=== PATIENT | male | born 1965 ===

== ENCOUNTER → 2019-08-10 | Outpatient (CLI) | payer BC ==
--- NOTE | 2019-08-10 10:07 | RAD ---
MR#: [id number] Date of Study: 08/10/2019 Ordering Physician: ROSAURA HUNTER Referring Physician: MENDEZ MEJÍA Tech: APPROVED REPORT Test Type: Exercise Stress Nurse/Tech: Tammy Nixon R.N. Test Indications: exertional angina, htn Cardiac History: htn Medications: See Electronic Medical Record Medical History: See Electronic Medical Record Resting ECG: SB w/ST elevation in lead V3 Resting Heart Rate: 52 bpm Resting Blood Pressure: 135/83mmHg Pretest Chest Pain: No chest pain Nurse/Tech Notes S1S2, lungs CTA Stress Symptoms jaw pain started about 4.5 minutes into stress part, scale 1.5/10. sternal/abd pain started shortly a fter and was 2.5/10. by the time reached HR goal his jaw pain was about the same and sternal/abd pain was up to 3.5. the jaw pain was gone within 2 minutes of recovery and sternal/abd pain was gone by t he end of recovery period. Will call Dr. Hunter's office and notify them of abnormal EKG POST EXERCISE Reason for Termination: Reached target heart rate Target HR: Yes Max HR: 143 bpm 102% of Maximum Predicted HR: 139 bpm Exercise duration: 10:14 min:sec, 4 Stage Exercise capacity: 13.4METs Max Blood Pressure: 205/105mmHg Blood Pressure response to exercise: Normal blood pressure response during stress. Heart Rate response to exercise: wnl Chest Pain: Yes. see above note Arrhythmia: No. ST Change: Yes. increased level of ST elevation in V3, new ST elevation in leads AVL, AVR, V1. ST dep ression in leads II,III,AVF, V5,V6 INTERPRETATION Stress EKG Conclusion: Mildly abnormal EKG with lateral ST depression of 1.5 mm Conclusion 1. 1. Baseline EKG without acute abnormalities. 2. 2. Mildly abnormal stress EKG with lateral wall ischemia suggested. 3. 3. Above average exercise capacity with 13.4 Mets achieved with normotensive BP response. 4. 4. Dumont treadmill score of 0 suggestive of moderate risk study due to jaw pain with activity. Signed by : Clifton Pena, Electronically Approved : 08/10/2019 10:07:23
== END | disposition home or self-care (01) ==
LOC: NM 07:39
PROVIDERS: ATTEND Family Medicine
DX: I20.8 Other forms of angina pectoris (principal); I25.9 Chronic ischemic heart disease, unspecified; R68.84 Jaw pain; I10 Essential (primary) hypertension
CPT/HCPCS: 93017